=== PATIENT | male | born 1975 | race Caucasian/White ===

== ENCOUNTER 2016-11-16 13:33 | Emergency (ER) | payer BC ==
[~2016-11-16] VITALS: Ht 177.8 cm; Wt 163.3 kg
--- NOTE | ~2016-11-16 | CT4 ---
[facility] A Service of [facility] & [facility] RADIOLOGY TEXT RESULTS PATIENT: TIERNEY POLO LOCATION: SED : 75 UNIT #: [id number] AGE: [address]: Krishna Baez MD SEX: M ORDER DR: [id number] [address] [address] [id number] MR#: [id number] #: [id number] NAME: TIERNEY POLO : 1975 SEX: M STUDY DATE/TIME: 11/16/2016 16:15 UNIT: SED ROOM: STUDY DESCRIPTION: CT Abd and Pelv Wo Cont Attending Physician: Krishna Baez M.D. Ordering Physician: Krishna Baez M.D. Primary Care Physician: Liz Borjas M.D. MEDICAL IMAGING REPORT This report is preliminary unless electronic signature is present. EXAM CT of the abdomen and pelvis without contrast INDICATION Right flank pain for [address] images were obtained from the dome of the diaphragm through the symphysis pubis. No oral or intravenous contrast material was administered. This CT examination was performed with one or more of the following radiation dose reduction techniques: automatic exposure control, adjustment of mA and/or kV according to patient size, and iterative reconstruction. FINDINGS Images through the bases are clear. This patient has diffuse hepatic steatosis. The liver is enlarged measuring up to 19 cm in craniocaudal dimensions. Spleen is also borderline enlarged at 13.9 cm in length. Stomach and proximal small bowel are within normal limits as are the adrenal glands. Pancreas is mildly atrophic. No focal hepatic lesions are seen. Gallbladder appears unremarkable. There is very mild right-sided hydronephrosis which is secondary to a 7 mm stone located within the proximal right ureter at the right ureterovesical junction. Additional punctate stone is seen within the inferior pole of the right kidney. No additional stones are seen within the kidneys themselves. I do not see any bladder stones. Patient's urinary bladder appears unremarkable. I do not see any free fluid or adenopathy within the abdomen. There is no evidence of mechanical bowel obstruction. The appendix is visualized and is within normal limits. Urinary bladder is relatively decompressed. There are small bilateral fat containing inguinal hernias. There are some scattered colonic diverticula without any convincing evidence of STS. [facility] A Service of [facility] RADIOLOGY TEXT RESULTS PATIENT: TIERNEY POLO LOCATION: SED : 75 UNIT #: [id number] AGE: [address]: Krishna Baez MD SEX: M ORDER DR: diverticulitis. Prostate gland contains some dystrophic calcifications. No aggressive osseous abnormalities are seen. 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 IMPRESSION 1. This patient has mild right-sided hydronephrosis secondary to a 7 mm stone located at the right ureteropelvic junction. An additional punctate stone is seen within the inferior pole of the right kidney. No stones are seen on the left, 2. Hepatic steatosis and hepatomegaly. Patient's spleen is also borderline enlarged. 3. The appendix is visualized and is within normal limits. 4. Please see the body of the report for any other additional incidental findings. Dictated by... Grisel Padron M.D. THIS IS AN ELECTRONICALLY VERIFIED REPORT Grisel Padron M.D. at 11/17/2016 5:07 PM RAHEEL/jason TD: 11/17/2016 10:45 JOB #: [id number] MEDICAL IMAGING REPORT Page 1 of 1
[~2016-11-16 13:33] MED LIST: AZOR 5-20 MG T1 EACH PO; AZOR PO; BACTRIM DS TABL1 TA1 PO; FLEXERIL PO; LORTAB 10-5001 EACH PO; MAG-OX 400400 MG PO; PERCOCET 10/3251 TAB PO; PRILOSEC PO; PROTONIX PO; SIMCOR 500-21 BOTTLE PO; TEKTURNA PO; XANAX1 MG PO
[2016-11-16] MEDS ORDERED: NORVASC (13:39)
[2016-11-16] MEDS ORDERED: PERCOCET10 (13:39)
[2016-11-16] MEDS ORDERED: METFORMIN (13:39)
[2016-11-16] MEDS ORDERED: PROTONIX (13:39)
[2016-11-16 15:02] LABS: BASOPHIL% 0.4 % (0-2.5); EOSINOPHIL# 0.1 X10e3 (0-0.7); EOSINOPHIL% 0.7 % (0.0-7.0); HEMATOCRIT 46.2 % (38.0-50.0); HEMOGLOBIN 15.8 gm/dL (13.0-16.0); LYMPHOCYTE# 1.7 X10e3 (1.0-3.5); LYMPHOCYTE% 16.3 % (17.0-45.0); MEAN CORPUSCULAR HEMOGLOBIN 29.4 PG (28-34); MEAN CORPUSCULAR HGB CONC 34.2 g/dL (30-36); MEAN PLATELET VOLUME 10.6 FL (6.5-11.5); MONOCYTE# 0.7 X10e3 (0-1.0); MONOCYTE% 6.2 % (3.0-12.0); NEUTROPHIL# 8.1 X10e3 (1.5-7.1); NEUTROPHIL% 76.4 % (40-75); PLATELET COUNT 210 X10e3 (140-420); RED BLOOD COUNT 5.37 X10e (3.90-5.60); RED CELL DISTRIBUTION WIDTH 14.1 % (11.0-15.5); WHITE BLOOD COUNT 10.6 X10e3 (4.0-10.5)
[2016-11-16 15:14] LABS: BILIRUBIN, DIRECT 0.1 mg/dL (0.0-0.2); BILIRUBIN,INDIRECT 0.5 mg/dL (0.0-0.9); BILIRUBIN,TOTAL 0.6 mg/dL (0.2-2.0); BUN/CREATININE RATIO 12.72; CALCIUM SERUM 9.3 mg/dL (8.4-10.2); CREATININE SERUM 1.1 mg/dL (0.6-1.4); POTASSIUM 4.2 mmol/L (3.5-5.1); PROTEIN TOTAL SERUM 7.8 g/dL (6.0-8.3)
[2016-11-16 15:23] LABS: DIFF IND NO
[2016-11-16 16:30] LABS: URINE SOURCE CLEAN CATCH
[2016-11-16 16:32] LABS: URINE APPEARANCE CLEAR; URINE BILIRUBIN NEG (NEG); URINE BLOOD 3+ (NEG); URINE COLOR YELLOW; URINE GLUCOSE NEG (NORM); URINE KETONE NEG (NEG); URINE LEUKOCYTE ESTERASE NEG (NEG); URINE NITRATE NEG (NEG); URINE PH 5.5 (5-8); URINE PROTEIN 1+ (NEG); URINE SPECIFIC GRAVITY >=1.030 (1.003-1.035); URINE UROBILINOGEN 0.2 MG/DL (NORM)
[2016-11-16 16:34] LABS: MICRO INDICATED? YES
[2016-11-16 16:53] LABS: CULTURE INDICATED? NO; URINE BACTERIA NEG (NEG); URINE RBC 50-100 /[HPF] (0-2); URINE WBC 0-2 /[HPF] (0-5)
== END 2016-11-16 17:30 | disposition home or self-care (01) ==
LOC: SED 13:33
PROVIDERS: Emergency Medicine
DX: N13.2 Hydronephrosis with renal and ureteral calculous obstruction (principal); I10 Essential (primary) hypertension; F17.200 Nicotine dependence, unspecified, uncomplicated; Z79.899 Other long term (current) drug therapy
CPT/HCPCS: 36415; 74176; 80048; 80076; 81003; 83690; 85025; 96374; 96375; 96376; 99284; J1170; J2405